=== PATIENT | male | born 1980 | race Caucasian/White ===

== ENCOUNTER 2018-05-25 15:38 | Emergency (ER) | payer MEDICAID ==
[2018-05-25] MEDS ORDERED: Lactated Ringer 1,000 ML IV ONE (16:11)
[2018-05-25 16:30] LABS: % BASOPHILS 0.5 % (0.0-2.0); % EOSINOPHILS 1.3 % (0.0-5.0); % LYMPHOCYTES 28.3 % (20.0-50.0); % MONOCYTES 8.5 % (2.0-10.0); % NEUTROPHILS 61.4 % (40.0-80.0); EOSINOPHILE ABSOLUTE 0.1 Th/cmm (0.1-0.4); HEMATOCRIT 48.5 % (41.0-60); HEMOGLOBIN 16.1 gm/dL (12-16); LYMPHOCYTE ABSOLUTE 2.7 Th/cmm (1.5-3.0); MEAN CELL VOLUME 91.4 fl (80-99); MEAN CORPUSCULAR HEMOGLOBIN 30.3 pg (26.0-30.0); MEAN CORPUSCULAR HGB CONC 33.1 pg (28.0-36.0); MEAN PLATELET VOLUME 7.4 fl; MONOCYTE ABSOLUTE 0.8 Th/cmm (0.3-1.0); NEUTROPHILE ABSOLUTE 6.1 Th/cmm (1.8-8.0); PLATELET COUNT 270 Th/cmm (150-400); RED CELL DISTRIBUTION WIDTH 11.6 % (11.5-20.0); WHITE BLOOD COUNT 9.7 Th/cmm (4.8-10.8)
[2018-05-25 16:47] LABS: ALB/GLOB RATIO 1.3 (1.0-1.8); ALBUMIN 4.1 gm/dL (4.2-5.5); ALKALINE PHOSPHATASE 100 U/L (34-104); ANION GAP 12.6 (7.0-16.0); BILIRUBIN,TOTAL 0.4 mg/dL (0.3-1.0); BUN - UREA NITROGEN 20 mg/dL (7-25); CALCIUM SERUM 9.8 mg/dL (8.6-10.3); CARBON DIOXIDE 24.6 mEq/L (21.0-31.0); CHLORIDE 104 mEq/L (98-107); CREATININE - SERUM 0.9 mg/dL (0.7-1.3); GFR AFRICAN-AMERICAN > 60.0 ml/min (>90); GFR NON AFRICAN-AMERICAN > 60.0 ml/min; GLUCOSE 154 mg/dL (70-105); MAGNESIUM 1.8 mg/dL (1.9-2.7); PHOSPHOROUS 1.5 mg/dL (2.5-5.0); POTASSIUM SERUM 3.2 mEq/L (3.5-5.1); SGOT 18 U/L (13-39); SGPT/ALT 18 U/L (7-52); SODIUM SERUM 138 mEq/L (136-145); TOTAL PROTEIN,SERUM 7.3 gm/dL (6.0-8.3)
[2018-05-25 16:55] LABS: DDIMER QUANT < 100 ng/mL (100-400)
[2018-05-25] MEDS ORDERED: Potassium Chloride 20 mEq ER Tab PO ONE ×2 (16:55→17:13)
[2018-05-25] MEDS ORDERED: Sodium Phos / Potassium Phos 1.25 GM PACK PO ONE (16:56)
[2018-05-25] MEDS ORDERED: IOHEXOL 300mgI/mL 100 ML VIAL ONE (17:37)
[2018-05-25 18:02] LABS: URINE SOURCE CLEAN C
[2018-05-25 18:06] LABS: URINE BILIRUBIN NEGATIVE (NEGATIVE); URINE BLOOD NEGATIVE (NEGATIVE); URINE GLUCOSE (UA) NEGATIVE (NEGATIVE); URINE KETONE NEGATIVE (NEGATIVE); URINE LEUKOCYTE ESTERASE NEGATIVE (NEGATIVE); URINE NITRATE NEGATIVE (NEGATIVE); URINE PROTEIN NEGATIVE (NEGATIVE); URINE UROBILINOGEN 0.2 E.U./dL (0.2 - 1.0)
[2018-05-25 18:11] LABS: URINE CLARITY CLEAR (CLEAR); URINE COLOR YELLOW
[2018-05-25 18:12] LABS: URINE MICROSCOPIC INDICATED? YES
[2018-05-25 18:14] LABS: AMPHETAMINE URINE NEGATIVE (NEGATIVE); BARBITURATES URINE NEGATIVE (NEGATIVE); BENZODIAZEPINES QUAL URINE NEGATIVE (NEGATIVE); CANNABINOID THC POSITIVE (NEGATIVE); COCAINE METABOLITE QUAL URINE NEGATIVE (NEGATIVE); METHADONE URINE NEGATIVE (NEGATIVE); METHAMPHETAMINES QUAL URINE NEGATIVE (NEGATIVE); OPIATES (MORPHINE) QUAL. URINE NEGATIVE (NEGATIVE); PHENCYCLIDINE (PCP) URINE NEGATIVE (NEGATIVE); TRICYCLICS (TCA) QUAL. URINE NEGATIVE (NEGATIVE); URINE BACTERIA FEW /hpf (NONE SEEN); URINE EPITHELIAL CELLS FEW /lpf (FEW); URINE RBC 0-2 /hpf (0-5); URINE WBC 0-2 /hpf (0-5)
--- NOTE | 2018-05-25 18:15 | ED Physician Chart ---
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 denies drug use. no chest pain. wants to be evaluated. has been seen in ER's in the past. girlfriend was recently diagnosed with typhus. unknown what type. Allergies:: Allergies Allergy/AdvReac Type Severity Reaction Status Date / Time night shade plants Allergy Uncoded 05/25/18 15:59 Vitals:: Vital Signs - 8 hr 05/25/18 15:59 Temp 98.8 F HR 119 RR 16 BP 139/82 O2 Sat % 100 Historian:: Patient Review:: Nurse's Note Reviewed ED Review of Systems - Review of Systems General/Constitutional: No fever, No chills, No weight loss, No weakness, No diaphoresis, No edema, No loss of appetite Skin: No skin lesions, No rash, No bruising Head: No headache, No light-headedness Eyes: No loss of vision, No pain, No diplopia ENT: No earache, No nasal drainage, No sore throat, No tinnitus Neck: No neck pain, No swelling, No thyromegaly, No stiffness, No mass noted Cardio Vascular: No chest pain, No palpitations, No PND, No orthopnea, No edema Pulmonary: SOB GI: No nausea, No vomiting, No diarrhea, No pain, No melena, No hematochezia, No constipation, No hematemesis G/U: No dysuria, No frequency, No hematuria Musculoskeletal: No bone or joint pain, No back pain, No muscle pain Endocrine: No polyuria, No polydipsia Psychiatric: No prior psych history, No depression, No anxiety, No suicidal ideation Hematopoietic: No bruising, No lymphadenopathy Allergic/Immuno: No urticaria, No angioedema Neurological: No syncope, No focal symptoms, No weakness, No paresthesia, No headache, No seizure, No dizziness, No confusion, No vertigo ED Past Medical History - Past Medical History Obtainable: Yes Past Medical History: Other (aspergillosis) Family Medical History - Family Member Mother History Unknown: Yes ED Physical Exam - Physical Examination General/Constitutional: Awake, Well-developed, well-nourished, Alert, No distress, GCS 15, Non-toxic appearing, Ambulatory Other Gen/Cons comments:: large sebaceous cyst present to the right of the patient's nose Head: Atraumatic Other Head comments:: large sebaceous cyst present to the right of the patient's nose Eyes: Lids, conjuctiva normal, PERRL, EOMI Skin: Nl inspection, No rash, No skin lesions, No ecchymosis, Well hydrated, No lymphadenopathy Other Skin comments:: large sebaceous cyst present to the right of the patient's nose ENMT: External ears, nose nl, Nasal exam nl, Lips, teeth, gums nl Neck: Nontender, No nuchal rigidity, No stridor Respiratory: Nl effort/Exclusion, Clear to Auscultation, No Wheeze/Rhonchi/Rales Cardio Vascular: RRR, No murmur, gallop, rubs, NL S1 S2 GI: No tenderness/rebounding/guarding, No organomegaly, No hernia, Normal BS's, Nondistended, No mass/bruits, No McBurney tenderness : No CVA tenderness Extremities: No tenderness or effusion, Full ROM, normal strength in all extremities, No edema, Normal digits & nails Neuro/Psych: Alert/oriented, Normal sensory exam, Normal motor strength, Judgement/insight normal, Mood normal, Normal gait, No focal deficits Misc: Normal back, No paraspinal tenderness ED Labs/Radiology/EKG Results - Lab Results Results: Laboratory Tests 05/25/18 05/25/18 05/25/18 16:22 16:22 16:22 WBC 9.7 RBC 5.30 Hgb 16.1 Hct 48.5 MCV 91.4 MCH 30.3 H MCHC Differential 33.1 RDW 11.6 Plt Count 270 MPV 7.4 Neutrophils % 61.4 Lymphocytes % 28.3 Monocytes % 8.5 Eosinophils % 1.3 Basophils % 0.5 ESR D-Dimer < 100 L Sodium 138 Potassium 3.2 L Chloride 104 Carbon Dioxide 24.6 Anion Gap 12.6 BUN 20 Creatinine 0.9 Est GFR ( Amer) > 60.0 Est GFR (Non-Af Amer) > 60.0 BUN/Creatinine Ratio 22.2 Glucose 154 H Calcium 9.8 Phosphorus 1.5 L Magnesium 1.8 L Total Bilirubin 0.4 AST 18 ALT 18 Alkaline Phosphatase 100 Troponin I Total Protein 7.3 Albumin 4.1 L Globulin 3.2 Albumin/Globulin Ratio 1.3 TSH 0.60 Urine Source Urine Color Urine Clarity Urine pH Ur Specific [place] Urine Protein Urine Glucose (UA) Urine Ketones Urine Blood Urine Nitrate Urine Bilirubin Urine Urobilinogen Ur Leukocyte Esterase Urine RBC Urine WBC Ur Epithelial Cells Urine Bacteria 05/25/18 05/25/18 05/25/18 16:22 16:22 17:40 WBC RBC Hgb Hct MCV MCH MCHC Differential RDW Plt Count MPV Neutrophils % Lymphocytes % Monocytes % Eosinophils % Basophils % ESR 3 D-Dimer Sodium Potassium Chloride Carbon Dioxide Anion Gap BUN Creatinine Est GFR ( Amer) Est GFR (Non-Af Amer) BUN/Creatinine Ratio Glucose Calcium Phosphorus Magnesium Total Bilirubin AST ALT Alkaline Phosphatase Troponin I < 0.01 L Total Protein Albumin Globulin Albumin/Globulin Ratio TSH Urine Source CLEAN C Urine Color YELLOW Urine Clarity CLEAR Urine pH 7.0 Ur Specific [place] 1.010 Urine Protein NEGATIVE Urine Glucose (UA) NEGATIVE Urine Ketones NEGATIVE Urine Blood NEGATIVE Urine Nitrate NEGATIVE Urine Bilirubin NEGATIVE Urine Urobilinogen 0.2 Ur Leukocyte Esterase NEGATIVE Urine RBC 0-2 H Urine WBC 0-2 Ur Epithelial Cells FEW Urine Bacteria FEW ED Assessment - Assessment General Assessment: EKG from 17:11:33 p.m. reveals normal sinus rhythm, nonspecific ST T wave chagnes, flipped t wave in V1 and plus minus ST elevation of 1 mm in V3 and V4. sed rate checked--normal. CXR: possible mass present in the left upper lobe. Further radiologic workup needed (CT scan with IV contrast) given patient's acute complaints of shortness of breath. CT scan of chest with IV contrast: no mass in lungs noted. ED Septic Shock - . Is Septic Shock (SBP<90, OR Lactate>4 mmol\L) present?: No - <6hrs of presentation: Vital Signs: Vital Signs - 8 hr 05/25/18 15:59 Temp 98.8 F HR 119 RR 16 BP 139/82 O2 Sat % 100 ED Reassessment (Disposition) - Reassessment Reassessment Condition:: Improved - Diagnosis Diagnosis:: Shortness of breath, resolved Typhus exposure Dehydration Low potassium, treated Low phosphorous, treatment to continue Low magnesium Cannabis usage - Aftercare/Follow up Instructions Aftercare/Follow-Up Instructions:: Refer to Discharge Instructions Notes:: follow up with primary care physician. CD's of all imaging studies and copy of EKG given to patient. Normal ESR with ST elevation of 1 mm in 2 leads noted. No evidence of pericardititis or myocarditis. Patient's recent exposure to Typhus (no send out from here). Told to follow up with PCP for testing. Patient insisted on being prescribed Doxycycline for typhus exposure from girlfriend. Medication Prescribed:: Doxycycline 100 mg po bid Cardiac Guard packet # 10 packets: 1 packet with each meal and at bedtime. - Patient Disposition Discharge/Transfer:: Home Condition at Disposition:: Stable, Improved
--- NOTE | 2018-05-26 09:43 | Diagnostic Imaging Report ---
CHEST X-RAY: AP view INDICATION: Shortness of breath COMPARISON: None FINDINGS: Hyperinflated lungs are seen with mild increased initial lung markings. There is no focal consolidation or pleural effusions The heart is normal in size. The osseous structures demonstrate no acute abnormalities. IMPRESSION: Hyperinflated lungs and mild increased interstitial markings. Etiologies such as asthma cannot be excluded. Please correlate clinically. No focal consolidation.
--- NOTE | 2018-05-26 09:57 | Diagnostic Imaging Report ---
CT Chest with IV contrast HISTORY: Shortness of breath, rule out pneumonia COMPARISON: Chest x-ray on 05/25/2018. Technique: Axial images were obtained from the base of the neck to the upper abdomen following administration of IV contrast. Reconstructions were made. Total DLP 254, CTD I 5.7 Findings: A few nonenlarged mediastinal lymph nodes are noted. No mediastinal adenopathy. There is no evidence of any aortic aneurysm. Heart size is normal. No pericardial effusion identified. No gross central pulmonary embolus. Evaluation of the lungs demonstrates no focal consolidation or effusions. Hyperinflated lungs are noted. No mass lesion identified. The upper abdomen demonstrates no acute abnormalities. The osseous structures demonstrate no acute abnormalities. Degenerative changes of the thoracic spine are noted. IMPRESSION: Hyperinflated lungs with no focal consolidation or pleural effusions. No mass lesions identified.
== END 2018-05-25 18:57 | disposition home or self-care (01) ==
LOC: ER 15:38
DX: E86.0 Dehydration (principal); E87.6 Hypokalemia; E83.39 Other disorders of phosphorus metabolism; F12.90 Cannabis use, unspecified, uncomplicated
CPT/HCPCS: 36415-UA; 71045-TC; 71260-TC; 80053-TC; 80307; 81001-TC; 83735-TC; 84100-TC; 84443-TC; 84484-TC; 85025-TC; 85379-TC; 85652-TC; Q9967; Z7502

== ENCOUNTER 2018-05-28 08:18 | Emergency (ER) | payer MEDICAID ==
[2018-05-28] MEDS ORDERED: Sodium Phos / Potassium Phos 1.25 GM PACK ONE (08:48)
[2018-05-28] MEDS: Sodium Phos / Potassium Phos 1.25 GM PACK PO ONE (08:50)
[2018-05-28 09:19] LABS: ALB/GLOB RATIO 1.3 (1.0-1.8); ALKALINE PHOSPHATASE 91 U/L (34-104); BILIRUBIN,TOTAL 0.6 mg/dL (0.3-1.0); BUN - UREA NITROGEN 12 mg/dL (7-25); CALCIUM SERUM 9.9 mg/dL (8.6-10.3); CARBON DIOXIDE 24.7 mEq/L (21.0-31.0); CHLORIDE 106 mEq/L (98-107); CREATININE - SERUM 0.9 mg/dL (0.7-1.3); GFR AFRICAN-AMERICAN > 60.0 ml/min (>90); GFR NON AFRICAN-AMERICAN > 60.0 ml/min; GLUCOSE 94 mg/dL (70-105); PHOSPHOROUS 1.5 mg/dL (2.5-5.0); POTASSIUM SERUM 3.7 mEq/L (3.5-5.1); SGOT 18 U/L (13-39); SGPT/ALT 17 U/L (7-52); SODIUM SERUM 140 mEq/L (136-145)
--- NOTE | 2018-05-28 11:06 | ED Physician Chart ---
ED Chief Complaint/HPI - Patient Information Date Seen:: 05/28/18 Time Seen:: 08:21 Chief Complaint:: shortness of breath, anxiety History of Present Illness:: shortness of breath, anxiety low phosphorous---given a prescription for neutraphos which he was not able to get filled. Allergies:: Allergies Allergy/AdvReac Type Severity Reaction Status Date / Time night shade plants Allergy Uncoded 05/25/18 15:59 Vitals:: Vital Signs - 8 hr 05/28/18 08:21 Temp 98.3 F HR 85 RR 18 BP 134/74 O2 Sat % 98 Historian:: Patient Review:: Nurse's Note Reviewed ED Review of Systems - Review of Systems General/Constitutional: No fever, No chills, No weight loss, Weakness, No diaphoresis, No edema, No loss of appetite Skin: No skin lesions, No rash, No bruising Head: No headache, No light-headedness Eyes: No loss of vision, No pain, No diplopia ENT: No earache, No nasal drainage, No sore throat, No tinnitus Neck: No neck pain, No swelling, No thyromegaly, No stiffness, No mass noted Cardio Vascular: No chest pain, No palpitations, No PND, No orthopnea, No edema Pulmonary: SOB GI: No nausea, No vomiting, No diarrhea, No pain, No melena, No hematochezia, No constipation, No hematemesis G/U: No dysuria, No frequency, No hematuria Musculoskeletal: No bone or joint pain, No back pain, No muscle pain Endocrine: No polyuria, No polydipsia Psychiatric: No prior psych history, No depression, No anxiety, No suicidal ideation Hematopoietic: No bruising, No lymphadenopathy Allergic/Immuno: No urticaria, No angioedema Neurological: No syncope, No focal symptoms, No weakness, No paresthesia, No headache, No seizure, No dizziness, No confusion, No vertigo ED Past Medical History - Past Medical History Obtainable: Yes Past Medical History: Other (h/o aspergillosis in the past; recent typhus exposure (possibility) through girlfriend; seen for low phosphorous level on 05/25/2018) Family Medical History - Family Member Mother History Unknown: Yes ED Physical Exam - Physical Examination General/Constitutional: Awake, Well-developed, well-nourished, Alert, GCS 15, Non-toxic appearing, Ambulatory Other Gen/Cons comments:: anxious, tachypneic Head: Atraumatic Other Head comments:: large sebaceous cyst to the right of the nose Eyes: Lids, conjuctiva normal, PERRL, EOMI Skin: Nl inspection, No rash, No skin lesions, No ecchymosis, Well hydrated, No lymphadenopathy Other Skin comments:: large sebaceous cyst to the right of the nose ENMT: External ears, nose nl, Nasal exam nl, Lips, teeth, gums nl Neck: Nontender, No nuchal rigidity, No stridor Respiratory: Nl effort/Exclusion, Clear to Auscultation, No Wheeze/Rhonchi/Rales Cardio Vascular: RRR, No murmur, gallop, rubs, NL S1 S2 GI: No tenderness/rebounding/guarding, No organomegaly, No hernia, Normal BS's, Nondistended, No mass/bruits, No McBurney tenderness : No CVA tenderness Extremities: No tenderness or effusion, Full ROM, normal strength in all extremities, No edema, Normal digits & nails Neuro/Psych: Alert/oriented, Normal sensory exam, Normal motor strength, Judgement/insight normal, Mood normal, Normal gait, No focal deficits Misc: Normal back, No paraspinal tenderness ED Labs/Radiology/EKG Results - Lab Results Results: Laboratory Tests 05/28/18 08:50 Sodium 140 Potassium 3.7 Chloride 106 Carbon Dioxide 24.7 Anion Gap 13.0 BUN 12 Creatinine 0.9 Est GFR ( Amer) > 60.0 Est GFR (Non-Af Amer) > 60.0 BUN/Creatinine Ratio 13.3 Glucose 94 Calcium 9.9 Phosphorus 1.5 L Magnesium 2.0 Total Bilirubin 0.6 AST 18 ALT 17 Alkaline Phosphatase 91 Total Protein 7.0 Albumin 4.0 L Globulin 3.0 Albumin/Globulin Ratio 1.3 ED Assessment - Assessment General Assessment: with a phosphorous level of less than 1.6, treatment is indicated to give the patient 40 mmole of phosphorous. This treatment alone will take 12 hours to run in. Then, a repeat phosphorous level will need to be rechecked 6 hours post infusion. Therefore, we called the patient's insurance company. They prefer to have the patient transferred (he is medically stable for transfer) to go to a contracted hospital. [email or web address] was called. There was acceptance by Dr. Mcclain, direct admit to [facility] at 11:00 a.[address] Report given to Dr. Mcclain. [email or web address] will call with a room number and will arrange transport according to Dr. Mcclain. insurance finally called with a bed. Will be transferred to [facility], Dr. Mcclain. ED Septic Shock - . Is Septic Shock (SBP<90, OR Lactate>4 mmol\L) present?: No - <6hrs of presentation: Vital Signs: Vital Signs - 8 hr 05/28/18 08:21 Temp 98.3 F HR 85 RR 18 BP 134/74 O2 Sat % 98 ED Reassessment (Disposition) - Reassessment Reassessment Condition:: Improved - Diagnosis Diagnosis:: Shortness of breath, resolved Anxiety, treated (no known h/o anxiety) Very low phosphorous, being treated. Cannabis use - Patient Disposition Discharge/Transfer:: Acute Care (other hosp) Condition at Disposition:: Stable, Improved
[2018-05-28] MEDS: Potassium Phosphate 20 MMOLE in Sodium Chloride 0.9% 250 ML IV ONE ×2 (11:50→11:51)
[2018-05-28 11:59] LABS: AMPHETAMINE URINE NEGATIVE (NEGATIVE); BARBITURATES URINE NEGATIVE (NEGATIVE); BENZODIAZEPINES QUAL URINE NEGATIVE (NEGATIVE); CANNABINOID THC POSITIVE (NEGATIVE); COCAINE METABOLITE QUAL URINE NEGATIVE (NEGATIVE); METHADONE URINE NEGATIVE (NEGATIVE); METHAMPHETAMINES QUAL URINE NEGATIVE (NEGATIVE); OPIATES (MORPHINE) QUAL. URINE NEGATIVE (NEGATIVE); PHENCYCLIDINE (PCP) URINE NEGATIVE (NEGATIVE); TRICYCLICS (TCA) QUAL. URINE NEGATIVE (NEGATIVE)
== END 2018-05-28 15:42 | disposition short-term general hospital (02) ==
LOC: ER 08:18
DX: F41.9 Anxiety disorder, unspecified (principal); E83.39 Other disorders of phosphorus metabolism; F12.90 Cannabis use, unspecified, uncomplicated; Z91.048 Other nonmedicinal substance allergy status
CPT/HCPCS: 36415-UA; 80053-TC; 80307; 83735-TC; 84100-TC; 90799; 96375; J2060

== ENCOUNTER 2018-07-04 21:41 | Emergency (ER) | payer MEDICAID ==
[2018-07-04] MEDS ORDERED: Sodium Chloride 0.9% 1,000 ML IV ONE (21:57)
--- NOTE | 2018-07-04 22:17 | ED Physician Chart ---
ED Chief Complaint/HPI - Patient Information Date Seen:: 07/04/18 Time Seen:: 21:45 Chief Complaint:: Headaches History of Present Illness:: onset x 3 days of diffuse, intermittent, dull H/As, N/V/D x 3; no report of trauma, LOC, ALOC, AMS, decreased activity, visual or gait changes, weakness, dizziness, paresthesias, vertigo, neck pain, S/T, cough, C/P, SOB, Abd. 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 Allergies:: Allergies Allergy/AdvReac Type Severity Reaction Status Date / Time night shade plants Allergy Uncoded 05/25/18 15:59 Vitals:: Vital Signs - 8 hr 07/04/18 21:45 Temp 99.8 F HR 92 RR 18 BP 146/96 O2 Sat % 99 Historian:: Patient Review:: Nurse's Note Reviewed, Old Chart Reviewed ED Review of Systems - Review of Systems General/Constitutional: No fever, No chills, No weight loss, No weakness, No diaphoresis, No edema, No loss of appetite Skin: No skin lesions, No rash, No bruising Head: Headache, No light-headedness Eyes: No loss of vision, No pain, No diplopia ENT: No earache, No nasal drainage, No sore throat, No tinnitus Neck: No neck pain, No swelling, No thyromegaly, No stiffness, No mass noted Cardio Vascular: No chest pain, No palpitations, No PND, No orthopnea, No edema Pulmonary: No SOB, No cough, No sputum, No wheezing GI: Nausea, Vomiting, Diarrhea, No pain, No melena, No hematochezia, No constipation, No hematemesis G/U: No dysuria, No frequency, No hematuria Musculoskeletal: No bone or joint pain, No back pain, No muscle pain Endocrine: No polyuria, No polydipsia Psychiatric: No prior psych history, No depression, No anxiety, No suicidal ideation, No homicidal ideation, No auditory hallucination, No visual hallucination Hematopoietic: No bruising, No lymphadenopathy Allergic/Immuno: No urticaria, No angioedema Neurological: No syncope, No focal symptoms, No weakness, No paresthesia, Headache, No seizure, No dizziness, No confusion, No vertigo ED Past Medical History - Past Medical History Obtainable: Yes Past Medical History: HTN Family History: HTN Social History: Non Smoker, No Alcohol, No Drug Use, Single Surgical History: None Psychiatricy History: None Medication: Reviewed Family Medical History - Family Member Mother History Unknown: Yes ED Physical Exam - Physical Examination General/Constitutional: Awake, Well-developed, well-nourished, Alert, No distress, GCS 15, Non-toxic appearing, Ambulatory Head: Atraumatic Eyes: Lids, conjuctiva normal, PERRL, EOMI Other Eyes comments:: PERRLA; Fundi: benign; EOMs: WNL Skin: Nl inspection, No rash, No skin lesions, No ecchymosis, Well hydrated, No lymphadenopathy ENMT: External ears, nose nl, TM canals nl, Nasal exam nl, Lips, teeth, gums nl , Oropharynx nl, Tonsils nl Other ENMT comments:: TMJs: WNL Neck: Nontender, Full ROM w/o pain, No JVD, No nuchal rigidity, No bruit, No mass, No stridor Other Neck comments:: supple; no meningeal signs; no cervical tenderness; no bruits Respiratory: Nl effort/Exclusion, Clear to Auscultation, No Wheeze/Rhonchi/Rales Cardio Vascular: RRR, No murmur, gallop, rubs, NL S1 S2, Carotid/Femoral/Distal pulses equal bilaterally GI: No tenderness/rebounding/guarding, No organomegaly, No hernia, Normal BS's, Nondistended, No mass/bruits, No McBurney tenderness, Rectum exam nl Other GI comments:: no pulsatile masses : No CVA tenderness Extremities: No tenderness or effusion, Full ROM, normal strength in all extremities, No edema, Normal digits & nails Neuro/Psych: Alert/oriented, DTR's symmetric, Normal sensory exam, Normal motor strength, Judgement/insight normal, Mood normal, Normal gait, No focal deficits Other Neuro/Psych comments:: no focal signs Misc: Normal back, No paraspinal tenderness ED Labs/Radiology/EKG Results - Lab Results Comments:: Reviewed - Radiology Results Comments:: NAD - EKG Interpretations EKG Time:: 22:31 Rate & Rhythm: 81; NSR Comments:: LVH; non-specific st-t changes ED Septic Shock - . Is Septic Shock (SBP<90, OR Lactate>4 mmol\L) present?: No - <6hrs of presentation: Vital Signs: Vital Signs - 8 hr 07/04/18 21:45 Temp 99.8 F HR 92 RR 18 BP 146/96 O2 Sat % 99 ED Reassessment (Disposition) - Reassessment Reassessment:: pt tolerated po fluids well in ER; pt is asymptomatic upon discharge Reassessment Condition:: Improved - Diagnosis Diagnosis:: Headaches; N/V/D; AGE; Gastroenteritis; Viral Syndrome; Hypertension; Vascular Cephalgia; Hypokalemia - Aftercare/Follow up Instructions Aftercare/Follow-Up Instructions:: Counseled pt regarding lab results/diagnosis & need follow up, Refer to Discharge Instructions, Counseled pt & family regarding lab results/diagnosis & need follow up Medication Prescribed:: Clear Liquid Diet; Encourage Fluids; eat foods rich in Potassium; Have Blood Pressure re-checked in one day by PMD - Patient Disposition Discharge/Transfer:: Home Condition at Disposition:: Stable, Improved (X-Rays Instructions; RTER prn if existing s/s reoccur and/or get worse and/or any other new s/s occur; ACIs given for all above Dx; Refer to GI Specialist/Neurologist/Experimental Flight Test Mechanic DAVID; F/U with PMD in one day or prn; RTER prn if concerned)
[2018-07-04 22:26] LABS: % BASOPHILS 0.5 % (0.0-2.0); % EOSINOPHILS 1.8 % (0.0-5.0); % LYMPHOCYTES 21.2 % (20.0-50.0); % MONOCYTES 6.7 % (2.0-10.0); % NEUTROPHILS 69.8 % (40.0-80.0); BASOPHILE ABSOLUTE 0.1 Th/cumm (0-0.2); EOSINOPHILE ABSOLUTE 0.2 Th/cmm (0.1-0.4); HEMATOCRIT 48.8 % (41.0-60); HEMOGLOBIN 16.6 gm/dL (12-16); LYMPHOCYTE ABSOLUTE 2.3 Th/cmm (1.5-3.0); MEAN CELL VOLUME 89.9 fl (80-99); MEAN CORPUSCULAR HEMOGLOBIN 30.5 pg (26.0-30.0); MEAN PLATELET VOLUME 6.8 fl; MONOCYTE ABSOLUTE 0.7 Th/cmm (0.3-1.0); NEUTROPHILE ABSOLUTE 7.4 Th/cmm (1.8-8.0); PLATELET COUNT 280 Th/cmm (150-400); RED BLOOD COUNT 5.43 Mil/cmm (4.30-5.70); WHITE BLOOD COUNT 10.7 Th/cmm (4.8-10.8)
[2018-07-04 22:51] LABS: ALBUMIN 4.7 gm/dL (4.2-5.5); ALKALINE PHOSPHATASE 97 U/L (34-104); AMYLASE SERUM 26 U/L (29-103); ANION GAP 12.8 (7.0-16.0); BILIRUBIN,TOTAL 0.4 mg/dL (0.3-1.0); BUN - UREA NITROGEN 13 mg/dL (7-25); CALCIUM SERUM 9.6 mg/dL (8.6-10.3); CARBON DIOXIDE 24.6 mEq/L (21.0-31.0); CHLORIDE 103 mEq/L (98-107); CHOLESTEROL 132 mg/dL (<200); CREATININE - SERUM 0.7 mg/dL (0.7-1.3); CREATININE KINASE 58 U/L (30-223); GFR AFRICAN-AMERICAN > 60.0 ml/min (>90); GFR NON AFRICAN-AMERICAN > 60.0 ml/min; GLUCOSE 129 mg/dL (70-105); HDL -HIGH DENSITY LIPOPROTEIN 40 mg/dL (23-92); LIPASE 11 U/L (11-82); POTASSIUM SERUM 3.4 mEq/L (3.5-5.1); SGOT 18 U/L (13-39); SGPT/ALT 21 U/L (7-52); SODIUM SERUM 137 mEq/L (136-145); TRIGLYCERIDES 56 mg/dL (<150)
[2018-07-04 23:23] LABS: INR 0.99 (0.5-1.4); PROTHROMBIN TIME (TEST) 10.3 SECONDS (9.5-11.5)
[2018-07-04] MEDS ORDERED: Potassium Chloride 20 mEq ER Tab PO ONE ×2 (23:31→23:34)
--- NOTE | 2018-07-05 08:54 | Diagnostic Imaging Report ---
Head CT without intravenous contrast Indication: Weakness, headaches, dizziness Comparison: None Technique: Axial images were obtained from the vertex to the skull base without IV contrast. Coronal reconstructions were made. Total DLP: 799, [id number] FINDINGS: Images of the brain obtained without contrast demonstrate no evidence of an acute hemorrhage. Hernandez-white matter differentiation is preserved. The ventricles and basal cisterns are patent. No mass effect or midline shift. No evidence of a skull fracture or focal soft tissue swelling. The visualized paranasal sinuses are clear. IMPRESSION: No acute intracranial abnormality.
--- NOTE | 2018-07-05 09:07 | Diagnostic Imaging Report ---
CT cervical spine without IV contrast HISTORY: Dizziness, weakness, headaches COMPARISON: None Technique: Axial images were obtained from the skull base to the upper thoracic spine without IV contrast. Multiplanar reconstructions were made. Total DLP: 484, CTDI21.8 FINDINGS: Images of the cervical spine obtained without contrast demonstrate no evidence of an acute fracture or subluxation. Moderate to advanced degenerative changes are seen primarily along the facet joints on the left side with multiple subchondral cystic changes and areas of vacuum phenomena. Mild to moderate left neural foraminal encroachment is seen at C4/C5. Small marginal ossific spurs are noted the largest at C4/C5 posteriorly measuring 2 to 3 mm asymmetric on the left. No prevertebral soft tissue swelling. The lung apices are clear. IMPRESSION: No evidence of an acute fracture or subluxation Degenerative changes primarily involving the facet joints on the left side. Please correlate with clinical findings.
== END 2018-07-04 23:50 | disposition home or self-care (01) ==
LOC: ER 21:41
DX: K52.9 Noninfective gastroenteritis and colitis, unspecified (principal); I10 Essential (primary) hypertension; B34.9 Viral infection, unspecified; G44.1 Vascular headache, not elsewhere classified; E87.6 Hypokalemia; Z91.048 Other nonmedicinal substance allergy status
CPT/HCPCS: 36415-UA; 70450-TC; 72125-TC; 80053-TC; 80061-TC; 82150-TC; 82550-TC; 83690-TC; 83880-TC; 84484-TC; 85025-TC; 85610-TC; 93005; J7030; Z7502

== ENCOUNTER 2018-07-17 13:14 | Emergency (ER) | payer MEDICAID ==
[2018-07-17] MEDS ORDERED: Sodium Chloride 0.9% 1,000 ML IV ONE (13:30)
[2018-07-17] MEDS ORDERED: Aspirin 325 mg EC PO ONE (13:30)
--- NOTE | 2018-07-17 13:51 | Diagnostic Imaging Report ---
CHEST X-RAY: AP view INDICATION: pain COMPARISON: 05/25/[address] chest on 05/25/2018 FINDINGS: Hyperinflated lungs are noted. There is no focal consolidation or pleural effusions The heart is normal in size. The osseous structures demonstrate no acute abnormalities. IMPRESSION: Hyperinflated lungs. No focal consolidation identified.
[2018-07-17 13:53] LABS: % BASOPHILS 0.8 % (0.0-2.0); % EOSINOPHILS 1.4 % (0.0-5.0); % LYMPHOCYTES 18.9 % (20.0-50.0); % MONOCYTES 7.7 % (2.0-10.0); % NEUTROPHILS 71.2 % (40.0-80.0); BASOPHILE ABSOLUTE 0.1 Th/cumm (0-0.2); EOSINOPHILE ABSOLUTE 0.1 Th/cmm (0.1-0.4); HEMATOCRIT 52.5 % (41.0-60); HEMOGLOBIN 17.3 gm/dL (12-16); LYMPHOCYTE ABSOLUTE 1.7 Th/cmm (1.5-3.0); MEAN CELL VOLUME 90.8 fl (80-99); MEAN CORPUSCULAR HEMOGLOBIN 29.9 pg (26.0-30.0); MEAN PLATELET VOLUME 7.4 fl; MONOCYTE ABSOLUTE 0.7 Th/cmm (0.3-1.0); NEUTROPHILE ABSOLUTE 6.3 Th/cmm (1.8-8.0); PLATELET COUNT 291 Th/cmm (150-400); RED BLOOD COUNT 5.78 Mil/cmm (4.30-5.70); RED CELL DISTRIBUTION WIDTH 12.1 % (11.5-20.0); WHITE BLOOD COUNT 8.9 Th/cmm (4.8-10.8)
[2018-07-17] MEDS ORDERED: Aspirin 81mg Chewable Tab ONE (13:56)
[2018-07-17 14:03] LABS: PROTHROMBIN TIME (TEST) 10.4 SECONDS (9.5-11.5)
[2018-07-17 14:08] LABS: ALBUMIN 4.7 gm/dL (4.2-5.5); ALKALINE PHOSPHATASE 96 U/L (34-104); AMYLASE SERUM 28 U/L (29-103); ANION GAP 11.3 (7.0-16.0); BILIRUBIN,TOTAL 0.5 mg/dL (0.3-1.0); BUN - UREA NITROGEN 15 mg/dL (7-25); CALCIUM SERUM 9.8 mg/dL (8.6-10.3); CARBON DIOXIDE 28.4 mEq/L (21.0-31.0); CHLORIDE 102 mEq/L (98-107); CHOLESTEROL 120 mg/dL (<200); CREATININE - SERUM 0.9 mg/dL (0.7-1.3); CREATININE KINASE 38 U/L (30-223); GFR AFRICAN-AMERICAN > 60.0 ml/min (>90); GFR NON AFRICAN-AMERICAN > 60.0 ml/min; GLUCOSE 110 mg/dL (70-105); HDL -HIGH DENSITY LIPOPROTEIN 40 mg/dL (23-92); LIPASE 11 U/L (11-82); POTASSIUM SERUM 3.7 mEq/L (3.5-5.1); SGOT 17 U/L (13-39); SGPT/ALT 21 U/L (7-52); SODIUM SERUM 138 mEq/L (136-145); TOTAL PROTEIN,SERUM 7.1 gm/dL (6.0-8.3); TRIGLYCERIDES 59 mg/dL (<150)
[2018-07-17 14:15] LABS: DDIMER QUANT < 100 ng/mL (100-400)
--- NOTE | 2018-07-17 14:33 | ED Physician Chart ---
ED Chief Complaint/HPI - Patient Information Date Seen:: 07/17/18 Time Seen:: 13:30 Chief Complaint:: Palpitations History of Present Illness:: onset x 3 hours of palpitations and rapid heart beats; pt admits to Hx of taking multiple Herbal Suppliments; pt denies trauma, LOC, ALOC, AMS, H/As, S/T , neck pain, C/P, SOB, cough, Abd. Pain, A/N/V/D/C, fever, chills, or urinary s/ s Allergies:: Allergies Allergy/AdvReac Type Severity Reaction Status Date / Time night shade plants Allergy Uncoded 05/25/18 15:59 Vitals:: Vital Signs - 8 hr 07/17/18 07/17/18 13:31 13:35 Temp 98.5 F 97.4 F HR 145 144 RR 22 16 BP 126/78 126/78 O2 Sat % 100 100 Historian:: Patient Review:: Nurse's Note Reviewed, Old Chart Reviewed <Price Alfaro - Last Filed: 07/17/18 18:32> - Patient Information Allergies:: Allergies Allergy/AdvReac Type Severity Reaction Status Date / Time Penicillins Allergy Verified 07/17/18 14:39 night shade plants Allergy Uncoded 05/25/18 15:59 <Verna Pringle - Last Filed: 07/18/18 10:29> ED Review of Systems - Review of Systems General/Constitutional: No fever, No chills, No weight loss, No weakness, No diaphoresis, No edema, No loss of appetite Skin: No skin lesions, No rash, No bruising Head: No headache, No light-headedness Eyes: No loss of vision, No pain, No diplopia ENT: No earache, No nasal drainage, No sore throat, No tinnitus Neck: No neck pain, No swelling, No thyromegaly, No stiffness, No mass noted Cardio Vascular: No chest pain, Palpitations, No PND, No orthopnea, No edema Pulmonary: No SOB, No cough, No sputum, No wheezing GI: No nausea, No vomiting, No diarrhea, No pain, No melena, No hematochezia, No constipation, No hematemesis G/U: No dysuria, No frequency, No hematuria, No nacturia Musculoskeletal: No bone or joint pain, No back pain, No muscle pain Endocrine: No polyuria, No polydipsia Psychiatric: No prior psych history, No depression, No anxiety, No suicidal ideation, No homicidal ideation, No auditory hallucination, No visual hallucination Hematopoietic: No bruising, No lymphadenopathy Allergic/Immuno: No urticaria, No angioedema Neurological: No syncope, No focal symptoms, No weakness, No paresthesia, No headache, No seizure, No dizziness, No confusion, No vertigo <Price Alfaro Last Filed: 07/17/18 18:32> ED Past Medical History - Past Medical History Obtainable: Yes Past Medical History: No significant medical hx Family History: None Social History: Non Smoker, No Alcohol, No Drug Use, Single Surgical History: None Psychiatricy History: None Medication: Reviewed <Price Alfaro Filed: 07/17/18 18:32> Family Medical History - Family Member Mother History Unknown: Yes <Price Alfaro Filed: 07/17/18 18:32> ED Physical Exam - Physical Examination General/Constitutional: Awake, Well-developed, well-nourished, Alert, No distress, GCS 15, Non-toxic appearing, Ambulatory Head: Atraumatic Eyes: Lids, conjuctiva normal, PERRL, EOMI Skin: Nl inspection, No rash, No skin lesions, No ecchymosis, Well hydrated, No lymphadenopathy ENMT: External ears, nose nl, TM canals nl, Nasal exam nl, Lips, teeth, gums nl , Oropharynx nl, Tonsils nl Neck: Nontender, Full ROM w/o pain, No JVD, No nuchal rigidity, No bruit, No mass, No stridor Respiratory: Nl effort/Exclusion, Clear to Auscultation, No Wheeze/Rhonchi/Rales Cardio Vascular: RRR, No murmur, gallop, rubs, NL S1 S2, Carotid/Femoral/Distal pulses equal bilaterally GI: No tenderness/rebounding/guarding, No organomegaly, No hernia, Normal BS's, Nondistended, No mass/bruits, No McBurney tenderness Other GI comments:: no pulsatile masses : No CVA tenderness Extremities: No tenderness or effusion, Full ROM, normal strength in all extremities, No edema, Normal digits & nails Neuro/Psych: Alert/oriented, DTR's symmetric, Normal sensory exam, Normal motor strength, Judgement/insight normal, Mood normal, Normal gait, No focal deficits Misc: Normal back, No paraspinal tenderness <Price Alfaro - Last Filed: 07/17/18 18:32> ED Labs/Radiology/EKG Results - Lab Results Results: Laboratory Tests 07/17/18 07/17/18 07/17/18 13:35 13:35 13:35 WBC 8.9 RBC 5.78 H Hgb 17.3 Hct 52.5 MCV 90.8 MCH 29.9 MCHC Differential 33.0 RDW 12.1 Plt Count 291 MPV 7.4 Neutrophils % 71.2 Lymphocytes % 18.9 L Monocytes % 7.7 Eosinophils % 1.4 Basophils % 0.8 PT 10.4 INR 1.00 D-Dimer < 100 L Sodium 138 Potassium 3.7 Chloride 102 Carbon Dioxide 28.4 Anion Gap 11.3 BUN 15 Creatinine 0.9 Est GFR ( Amer) > 60.0 Est GFR (Non-Af Amer) > 60.0 BUN/Creatinine Ratio 16.7 Glucose 110 H Calcium 9.8 Total Bilirubin 0.5 AST 17 ALT 21 Alkaline Phosphatase 96 Creatine Kinase 38 Troponin I B-Natriuretic Peptide Total Protein 7.1 Albumin 4.7 Globulin 2.4 Albumin/Globulin Ratio 2.0 H Triglycerides 59 Cholesterol 120 LDL Cholesterol Direct 87 HDL Cholesterol 40 Amylase 28 L Lipase 11 07/17/18 07/17/18 13:35 13:45 WBC RBC Hgb Hct MCV MCH MCHC Differential RDW Plt Count MPV Neutrophils % Lymphocytes % Monocytes % Eosinophils % Basophils % PT INR D-Dimer Sodium Potassium Chloride Carbon Dioxide Anion Gap BUN Creatinine Est GFR ( Amer) Est GFR (Non-Af Amer) BUN/Creatinine Ratio Glucose Calcium Total Bilirubin AST ALT Alkaline Phosphatase Creatine Kinase Troponin I < 0.01 L B-Natriuretic Peptide < 5.0 L Total Protein Albumin Globulin Albumin/Globulin Ratio Triglycerides Cholesterol LDL Cholesterol Direct HDL Cholesterol Amylase Lipase Comments:: Reviewed - EKG Interpretations EKG Time:: 13:18 Rate & Rhythm: 140; ST Comments:: non-specific st-t changes <Price Alfaro - Last Filed: 07/17/18 18:32> - Lab Results Results: Laboratory Tests 07/17/18 07/17/18 07/17/18 13:35 13:35 13:35 WBC 8.9 RBC 5.78 H Hgb 17.3 Hct 52.5 MCV 90.8 MCH 29.9 MCHC Differential 33.0 RDW 12.1 Plt Count 291 MPV 7.4 Neutrophils % 71.2 Lymphocytes % 18.9 L Monocytes % 7.7 Eosinophils % 1.4 Basophils % 0.8 PT 10.4 INR 1.00 D-Dimer < 100 L Sodium 138 Potassium 3.7 Chloride 102 Carbon Dioxide 28.4 Anion Gap 11.3 BUN 15 Creatinine 0.9 Est GFR ( Amer) > 60.0 Est GFR (Non-Af Amer) > 60.0 BUN/Creatinine Ratio 16.7 Glucose 110 H Calcium 9.8 Total Bilirubin 0.5 AST 17 ALT 21 Alkaline Phosphatase 96 Creatine Kinase 38 Troponin I B-Natriuretic Peptide Total Protein 7.1 Albumin 4.7 Globulin 2.4 Albumin/Globulin Ratio 2.0 H Triglycerides 59 Cholesterol 120 LDL Cholesterol Direct 87 HDL Cholesterol 40 Amylase 28 L Lipase 11 Urine Source Urine Color Urine Clarity Urine pH Ur Specific [place] Urine Protein Urine Glucose (UA) Urine Ketones Urine Blood Urine Nitrate Urine Bilirubin Urine Urobilinogen Ur Leukocyte Esterase Urine RBC Urine WBC Ur Epithelial Cells Amorphous Sediment Urine Bacteria Urine Opiates Screen Urine Methadone Screen Ur Barbiturates Screen Ur Tricyclics Screen Ur Phencyclidine Scrn Amphetamines Screen U Methamphetamines Scrn U Benzodiazepines Scrn U Cocaine Metab Screen U Cannabinoids Screen 07/17/18 07/17/18 07/17/18 13:35 13:45 15:25 WBC RBC Hgb Hct MCV MCH MCHC Differential RDW Plt Count MPV Neutrophils % Lymphocytes % Monocytes % Eosinophils % Basophils % PT INR D-Dimer Sodium Potassium Chloride Carbon Dioxide Anion Gap BUN Creatinine Est GFR ( Amer) Est GFR (Non-Af Amer) BUN/Creatinine Ratio Glucose Calcium Total Bilirubin AST ALT Alkaline Phosphatase Creatine Kinase Troponin I < 0.01 L B-Natriuretic Peptide < 5.0 L Total Protein Albumin Globulin Albumin/Globulin Ratio Triglycerides Cholesterol LDL Cholesterol Direct HDL Cholesterol Amylase Lipase Urine Source Urine Color Urine Clarity Urine pH Ur Specific [place] Urine Protein Urine Glucose (UA) Urine Ketones Urine Blood Urine Nitrate Urine Bilirubin Urine Urobilinogen Ur Leukocyte Esterase Urine RBC Urine WBC Ur Epithelial Cells Amorphous Sediment Urine Bacteria Urine Opiates Screen NEGATIVE Urine Methadone Screen NEGATIVE Ur Barbiturates Screen NEGATIVE Ur Tricyclics Screen NEGATIVE Ur Phencyclidine Scrn NEGATIVE Amphetamines Screen NEGATIVE U Methamphetamines Scrn NEGATIVE U Benzodiazepines Scrn NEGATIVE U Cocaine Metab Screen NEGATIVE U Cannabinoids Screen POSITIVE H 07/17/18 07/17/18 15:25 19:55 WBC RBC Hgb Hct MCV MCH MCHC Differential RDW Plt Count MPV Neutrophils % Lymphocytes % Monocytes % Eosinophils % Basophils % PT INR D-Dimer Sodium Potassium Chloride Carbon Dioxide Anion Gap BUN Creatinine Est GFR ( Amer) Est GFR (Non-Af Amer) BUN/Creatinine Ratio Glucose Calcium Total Bilirubin AST ALT Alkaline Phosphatase Creatine Kinase Troponin I < 0.01 L B-Natriuretic Peptide Total Protein Albumin Globulin Albumin/Globulin Ratio Triglycerides Cholesterol LDL Cholesterol Direct HDL Cholesterol Amylase Lipase Urine Source CLEAN C Urine Color YELLOW Urine Clarity CLEAR Urine pH 7.5 Ur Specific [place] 1.010 Urine Protein NEGATIVE Urine Glucose (UA) NEGATIVE Urine Ketones NEGATIVE Urine Blood NEGATIVE Urine Nitrate NEGATIVE Urine Bilirubin NEGATIVE Urine Urobilinogen 0.2 Ur Leukocyte Esterase NEGATIVE Urine RBC 0-2 H Urine WBC 0-2 Ur Epithelial Cells FEW Amorphous Sediment FEW PHOSPHATES Urine Bacteria FEW Urine Opiates Screen Urine Methadone Screen Ur Barbiturates Screen Ur Tricyclics Screen Ur Phencyclidine Scrn Amphetamines Screen U Methamphetamines Scrn U Benzodiazepines Scrn U Cocaine Metab Screen U Cannabinoids Screen <Verna Pringle - Last Filed: 07/18/18 10:29> ED Septic Shock - . Is Septic Shock (SBP<90, OR Lactate>4 mmol\L) present?: No - <6hrs of presentation: Vital Signs: Vital Signs - 8 hr 07/17/18 07/17/18 13:31 13:35 Temp 98.5 F 97.4 F HR 145 144 RR 22 16 BP 126/78 126/78 O2 Sat % 100 100 <Price Alfaro - Last Filed: 07/17/18 18:32> ED Reassessment (Disposition) - Reassessment Reassessment Condition:: Improved - Diagnosis Diagnosis:: Palpitations; Tachycardia; Dehydration <Price Alfaro - Last Filed: 07/17/18 18:32> - Reassessment Reassessment:: Repeated EKG which showed resolved tachycardia and a repeated Troponin was < 0.01 Substance abuse Reassessment Condition:: Improved - Aftercare/Follow up Instructions Notes:: F/u PCP or return to ER if symptoms worsen - Patient Disposition Discharge/Transfer:: Home <Verna Pringle - Last Filed: 07/18/18 10:29>
[2018-07-17 17:07] LABS: URINE SOURCE CLEAN C
[2018-07-17 17:11] LABS: URINE BILIRUBIN NEGATIVE (NEGATIVE); URINE BLOOD NEGATIVE (NEGATIVE); URINE GLUCOSE (UA) NEGATIVE (NEGATIVE); URINE KETONE NEGATIVE (NEGATIVE); URINE LEUKOCYTE ESTERASE NEGATIVE (NEGATIVE); URINE NITRATE NEGATIVE (NEGATIVE); URINE PH 7.5 (4.6 - 8.0); URINE PROTEIN NEGATIVE (NEGATIVE); URINE UROBILINOGEN 0.2 E.U./dL (0.2 - 1.0)
[2018-07-17 17:17] LABS: URINE CLARITY CLEAR (CLEAR); URINE COLOR YELLOW; URINE MICROSCOPIC INDICATED? YES
[2018-07-17 17:19] LABS: AMPHETAMINE URINE NEGATIVE (NEGATIVE); BARBITURATES URINE NEGATIVE (NEGATIVE); BENZODIAZEPINES QUAL URINE NEGATIVE (NEGATIVE); CANNABINOID THC POSITIVE (NEGATIVE); COCAINE METABOLITE QUAL URINE NEGATIVE (NEGATIVE); METHADONE URINE NEGATIVE (NEGATIVE); METHAMPHETAMINES QUAL URINE NEGATIVE (NEGATIVE); OPIATES (MORPHINE) QUAL. URINE NEGATIVE (NEGATIVE); PHENCYCLIDINE (PCP) URINE NEGATIVE (NEGATIVE); TRICYCLICS (TCA) QUAL. URINE NEGATIVE (NEGATIVE)
[2018-07-17 17:24] LABS: URINE AMORPHOUS SEDIMENT FEW PHOSPHATES (NONE SEEN); URINE BACTERIA FEW /hpf (NONE SEEN); URINE EPITHELIAL CELLS FEW /lpf (FEW); URINE RBC 0-2 /hpf (0-5); URINE WBC 0-2 /hpf (0-5)
== END 2018-07-17 20:35 | disposition home or self-care (01) ==
LOC: ER 13:14
DX: E86.0 Dehydration (principal); R00.2 Palpitations; R00.0 Tachycardia, unspecified; Z88.0 Allergy status to penicillin; Z91.048 Other nonmedicinal substance allergy status
CPT/HCPCS: 99284; 94760; 93005 ×2; 71045; 84484 ×2; 83880; 36415; 85379; 80307; 85025; 85610; 81001; 82150; 82550; 83690; 80053; 80061; Z7610; J7030; Z7502